=== PATIENT | male | born 1965 | race American Indian/Alaskan Native ===

== ENCOUNTER 2017-02-14 22:24 | Inpatient (IN) | payer OTHER ==
[2017-02-14 23:20] LABS: Basophils % (Auto) 0.8 % (0.0-1.8); Hemoglobin 9.3 gm/dl (11.8-15.2); Mean Corpuscular HGB Conc 28 % (32-34); Platelet Count 202 K/mm3 (140-440); Red Blood Count 4.98 M/mm3 (3.65-5.03); White Blood Count 12.8 K/mm3 (4.5-11.0)
--- NOTE | 2017-02-14 23:20 | XRay Report ---
FINAL REPORT PROCEDURE: XR CHEST 1V AP TECHNIQUE: Chest radiograph anteroposterior view. CPT 53097 HISTORY: sob COMPARISON: No prior studies are available for comparison. FINDINGS: Heart: Cardiac size is upper limit of normal. Mediastinum/Vessels: Normal. Lungs/Pleural space: Normal. Bony thorax: No acute osseous abnormality. Life support devices: None. IMPRESSION: No acute pulmonary process.
[2017-02-14 23:21] LABS: Hematocrit 33.4 % (35.5-45.6); Mean Corpuscular Hemoglobin 19 pg (28-32); Mean Corpuscular Volume 67 fl (84-94); Red Cell Distribution Width 21.6 % (13.2-15.2)
[2017-02-14 23:25] LABS: INR 1.09 (0.87-1.13)
[2017-02-14 23:38] LABS: Creatine Kinase MB 2.9 ng/mL (0.0-4.0)
[2017-02-14 23:40] LABS: Alanine Aminotransferase 13 units/L (7-56); Albumin 3.7 g/dL (3.9-5); Alkaline Phosphatase 81 units/L (35-129); Anion Gap 19 mmol/L; BUN/Creatinine Ratio 12; Blood Urea Nitrogen 32 mg/dL (9-20); Calcium 9.1 mg/dL (8.4-10.2); Carbon Dioxide 22 mmol/L (22-30); Chloride 104.8 mmol/L (98-107); Creatine Kinase 100 units/L (55-170); Glucose 92 mg/dL (75-100); Potassium 3.8 mmol/L (3.6-5.0); Sodium 142 mmol/L (137-145); Total Protein 7.4 g/dL (6.3-8.2)
[2017-02-14] MEDS ORDERED: CARDENE 50 MG in NACL 0.9% 250ML 230 ML IV SCH (23:45)
--- NOTE | 2017-02-15 00:33 | Emergency Department Report ---
ED Shortness of Breath HPI - General Chief Complaint: High BP Stated Complaint: HIGH BP Time Seen by Provider: 02/14/17 22:57 Source: patient, EMS, old records reviewed Mode of arrival: Stretcher Limitations: No Limitations - History of Present Illness Initial Comments: 51-year-old male with a past medical history of, gout, hypertension, chronic kidney disease, and CHF presents to the hospital with complaints of shortness of breath 3 days. Patient complains of dyspnea on exertion. Patient states it feels similar to when he had CHF in the past. Denies orthopnea, PND, cough , recent travel, calf tenderness, or leg asymmetry. Patient had intermittent episodes and nausea vomiting with 5 episodes since Monday and 2 episodes today. Patient denies abdominal pain, chest pain, or fever. Patient went to [facility] and was evaluated. Patient vomited his medication today. On visit to the office his blood pressure was 269/149, pulse 98, respiratory rate 20, temp 99.3, and 95% oxygenation apices unknown if supplemental oxygen was provided) while at [facility] patient received blood work with a negative troponin, CBC showing a WBC count 12.7, hemoglobin 9.5, elevated d-dimer at 0.78 (negative less than 0.5), uric acid elevated to 12.1, and elevated BMP at 3714. No chemistries available for review with no baseline creatinine included Patient treated in the office with 10 mg IV hydralazine, morphine 4 mg, Zofran 4 mg, aspirin 324, and nitroglycerin 0.4 mg. Repeat blood pressure remained elevated despite treatment. Patient was in the hospital in December with diagnosis of hypertensive crisis and grade 2 diastolic dysfunction in the percent as well as acute kidney injury. . Headache started after nitroglycerin is gradually improving. Patient complains of moderate pain to left medial ankle secondary to gout as well as with walking, movement, and palpation. - Related Data Allergies Allergy/AdvReac Type Severity Reaction Status Date / Time No Known Allergies Allergy Verified 02/14/17 22:48 ED Review of Systems ROS: Stated complaint: HIGH BP Other details as noted in HPI Comment: All other systems reviewed and negative Other: Constitutional: No fevers chills Eyes: No eye pain visual changes ENT: No ear pain or throat pain Neck: Denies pain Respiratory: sob Cardiovascular: Denies chest pain, palpitations, syncope GI: as per hpi : Denies dysuria Musculoskeletal: As per HPI Skin: Denies rash, lesions, erythema Neurologic: Denies headache, numbness, weakness Psychiatric: Denies suicidal ideation, hallucinations ED Past Medical Hx - Past Medical History Previous Medical History?: Yes Hx Hypertension: Yes Hx Renal Disease: Yes (chronic renal insufficiency) Hx Arthritis: Yes (gout) Additional medical history: perioheral venous insufficiency. anemia - Surgical History Past Surgical History?: No - Social History Smoking Status: Never Smoker Substance Use Type: None ED Physical Exam - General Limitations: Other - Other Other exam information: General: No limitations, patient is alert in no acute distress Head exam: Atraumatic, normocephalic Eyes exam: Normal appearance, ENT: Moist mucous membrane, normal oropharynx Neck exam: Normal inspection, full range of motion, no meningismus nontender Respiratory exam: Clear to auscultation bilateral, no wheezes, rales, crackles Cardiovascular: Normal rate and rhythm Abdomen: Soft, nondistended, and nontender, with normal bowel sounds, no rebound, or guarding Extremity: Full range of motion normal inspection no deformity, left medial ankle tenderness and warmth without erythema. no calf tenderness Back: Normal Inspection, full range of motion, no tenderness Neurologic: Alert, oriented x3, cranial nerves intact, no motor or sensory deficit Psychiatric: normal affect, normal mood Skin: Warm, dry, intact ED Course Vital Signs 02/14/17 02/14/17 02/14/17 22:42 23:00 23:15 Temperature 98.0 F Pulse Rate 89 Respiratory 18 Rate Blood Pressure 233/134 220/136 222/127 O2 Sat by Pulse 96 98 96 Oximetry 02/14/17 02/14/17 02/15/17 23:30 23:45 00:00 Temperature Pulse Rate 90 85 88 Respiratory 23 28 H 20 Rate Blood Pressure 225/121 227/134 227/134 O2 Sat by Pulse 96 93 95 Oximetry 02/15/17 02/15/17 02/15/17 00:15 00:30 00:45 Temperature Pulse Rate 88 83 89 Respiratory 22 28 H 26 H Rate Blood Pressure 227/129 223/131 223/131 O2 Sat by Pulse 95 93 96 Oximetry 02/15/17 02/15/17 02/15/17 01:29 01:31 01:45 Temperature Pulse Rate 88 97 H 83 Respiratory 21 30 H Rate Blood Pressure 199/105 199/105 189/104 O2 Sat by Pulse 92 97 93 Oximetry - Reevaluation(s) Reevaluation #1: 02/15/17 00:43 wolfgang ted initated - Consultations Consultation #1: 02/15/17 00:[address] Durán with [facility]. Agreeable to having patient admitted here instead of transfer. Consultation #2: 02/15/17 01:28 Dr Nair informed of admission, request call back once vq results ED Medical Decision Making - Lab Data Result diagrams: 02/14/17 23:03 02/14/17 23:03 Lab Results 02/14/17 02/14/17 02/14/17 Range/Units 23:03 23:03 23:03 WBC 12.8 H (4.5-11.0) K/mm3 RBC 4.98 (3.65-5.03) M/mm3 Hgb 9.3 L (11.8-15.2) gm/dl Hct 33.4 L (35.5-45.6) % MCV 67 L (84-94) fl MCH 19 L (28-32) pg MCHC 28 L (32-34) % RDW 21.6 H (13.2-15.2) % Plt Count 202 (140-440) K/mm3 Lymph % (Auto) 17.7 (13.4-35.0) % [place] % (Auto) 6.1 (0.0-7.3) % Eos % (Auto) 1.0 (0.0-4.3) % Baso % (Auto) 0.8 (0.0-1.8) % Lymph # 2.3 (1.2-5.4) K/mm3 [place] # 0.8 (0.0-0.8) K/mm3 Eos # 0.1 (0.0-0.4) K/mm3 Baso # 0.1 (0.0-0.1) K/mm3 Seg Neutrophils % 74.4 H (40.0-70.0) % Seg Neutrophils # 9.5 H (1.8-7.7) K/mm3 PT 14.7 (12.2-14.9) Sec. INR 1.09 (0.87-1.13) APTT 30.0 (24.2-36.6) Sec. D-Dimer 356.84 H (0-234) ng/mlDDU Sodium 142 (137-145) mmol/L Potassium 3.8 (3.6-5.0) mmol/L Chloride 104.8 (98-107) mmol/L Carbon Dioxide 22 (22-30) mmol/L Anion Gap 19 mmol/L BUN 32 H (9-20) mg/dL Creatinine 2.6 H (0.8-1.5) mg/dL Estimated GFR 32 ml/min BUN/Creatinine Ratio 12 % Glucose 92 (75-100) mg/dL Calcium 9.1 (8.4-10.2) mg/dL Total Bilirubin 0.50 (0.1-1.2) mg/dL AST 13 (5-40) units/L ALT 13 (7-56) units/L Alkaline Phosphatase 81 (35-129) units/L Total Creatine Kinase 100 (55-170) units/L CK-MB (CK-2) 2.9 (0.0-4.0) ng/mL CK-MB (CK-2) Rel Index 2.9 (0-4) Troponin T < 0.010 (0.00-0.029) ng/mL NT-Pro-B Natriuret Pep 29164 H (0-450) pg/mL Total Protein 7.4 (6.3-8.2) g/dL Albumin 3.7 L (3.9-5) g/dL Albumin/Globulin Ratio 1.0 % Lipase (13-60) units/L 02/14/ Range/Units 23:03 WBC (4.5-11.0) K/mm3 RBC (3.65-5.03) M/mm3 Hgb (11.8-15.2) gm/dl Hct (35.5-45.6) % MCV (84-94) fl MCH (28-32) pg MCHC (32-34) % RDW (13.2-15.2) % Plt Count (140-440) K/mm3 Lymph % (Auto) (13.4-35.0) % [place] % (Auto) (0.0-7.3) % Eos % (Auto) (0.0-4.3) % Baso % (Auto) (0.0-1.8) % Lymph # (1.2-5.4) K/mm3 [place] # (0.0-0.8) K/mm3 Eos # (0.0-0.4) K/mm3 Baso # (0.0-0.1) K/mm3 Seg Neutrophils % (40.0-70.0) % Seg Neutrophils # (1.8-7.7) K/mm3 PT (12.2-14.9) Sec. INR (0.87-1.13) APTT (24.2-36.6) Sec. D-Dimer (0-234) ng/mlDDU Sodium (137-145) mmol/L Potassium (3.6-5.0) mmol/L Chloride (98-107) mmol/L Carbon Dioxide (22-30) mmol/L Anion Gap mmol/L BUN (9-20) mg/dL Creatinine (0.8-1.5) mg/dL Estimated GFR ml/min BUN/Creatinine Ratio % Glucose (75-100) mg/dL Calcium (8.4-10.2) mg/dL Total Bilirubin (0.1-1.2) mg/dL AST (5-40) units/L ALT (7-56) units/L Alkaline Phosphatase (35-129) units/L Total Creatine Kinase (55-170) units/L CK-MB (CK-2) (0.0-4.0) ng/mL CK-MB (CK-2) Rel Index (0-4) Troponin T (0.00-0.029) ng/mL NT-Pro-B Natriuret Pep (0-450) pg/mL Total Protein (6.3-8.2) g/dL Albumin (3.9-5) g/dL Albumin/Globulin Ratio % Lipase 30 (13-60) units/L - EKG Data -: EKG Interpreted by Me (ems ekg) EKG shows normal: sinus rhythm, axis (32), QRS complexes (94), ST-T waves (lvh with repol, lat t inv) Rate: normal (94) - EKG Data When compared to previous EKG there are: no significant change (compared to ekg at [facility] or 01/02/17 [facility] e[facility]) - Radiology Data Radiology results: report reviewed AP chest: No acute findings VQ neg for pe - Medical Decision Making Plan to admit patient to hospital for hypertensive emergency with associated shortness of breath. Initial troponin negative. Patient has renal insufficiency with unknown baseline. BNP significantly elevated despite unremarkable chest x-ray. Patient started on Cardene drip. Hospitalist informed. Lasix 40 mg IV 1 ordered in the ED given elevated BNP - Differential Diagnosis PE, CHF, SD, unstable angina, hypertensive emergency Critical Care Time: No Critical care attestation.: If time is entered above; I have spent that time in minutes in the direct care of this critically ill patient, excluding procedure time. ED Disposition Clinical Impression: Hypertensive emergency, Dyspnea, Renal insufficiency, Anemia Disposition: OP ADMIT IP TO THIS HOSP Is pt being admited?: Yes Condition: Stable Time of Disposition: 02:01 (Dr Nair/hosp)
--- NOTE | 2017-02-15 01:36 | Nuclear Medicine Report ---
FINAL REPORT PROCEDURE: NM LUNG SCAN PERF/VENT TECHNIQUE: 5.0 mCi Tc-99m MAA was injected IV for pulmonary perfusion imaging in multiple projections. 15.0 mCi xenon 133 was inhaled for pulmonary ventilation imaging in multiple projections. Injection site: RIGHT antecubital fossa. CPT 77677 REGULATORY GUIDELINES: The patient was released based upon guidelines established in [place] State Regulations for Protection Against Radiation, Chapter 1199-04-19-35, Release of Individuals Containing Radioactive Drugs or Implants. HISTORY: elevated ddimer COMPARISON: Chest x-ray 02/14/2017 FINDINGS: Perfusion: No defects . Ventilation: No defects . IMPRESSION: Normal Examination
[2017-02-15] MEDS ORDERED: LASIX IV ONE (02:01)
[2017-02-15] MEDS ORDERED: ZOFRAN IV PRN (08:55)
[2017-02-15] MEDS ORDERED: MILK OF MAGNESIA PO PRN (08:55)
--- NOTE | 2017-02-15 08:59 | History and Physical Report ---
History of Present Illness Date of examination: 02/15/17 Date of admission: 02/15/2017 Chief complaint: shortness of breath History of present illness: Patient is a 51-year-old male with a past medical history of, gout, hypertension , chronic kidney disease, and CHF presents to the Emergency Department with complaints of shortness of breath 3 days. Patient complains of dyspnea on exertion, headache and nausea and vomiting for the past 4 days. Patient went to urgent care and found to have his blood pressure was 269/149; was instructed to go the nearest emergency department. Patient also complains left ankle pain due to gout attack. Patient denies orthopnea, PND, cough, recent travel, calf tenderness, or leg asymmetry. Past History Past Medical History: heart failure, hypertension, other (Gout and chronic kidney disease) Past Surgical History: No surgical history Social history: denies: smoking, alcohol abuse Family history: diabetes, hypertension Medications and Allergies Allergies Allergy/AdvReac Type Severity Reaction Status Date / Time No Known Allergies Allergy Verified 02/14/17 22:48 Home Medications Medication Instructions Recorded Confirmed Last Taken Type Acetaminophen [Tylenol Extra 500 mg PO PRN PRN 02/15/17 02/15/17 02/14/17 History Strength] Allopurinol [Zyloprim] 100 mg PO QDAY 02/15/17 02/15/17 02/14/17 History Atenolol 100 mg PO DAILY 02/15/17 02/15/17 02/14/17 History Calcitriol [Rocaltrol] 0.25 mg PO DAILY 02/15/17 02/15/17 02/14/17 History Furosemide [Lasix TAB] 40 mg PO QDAY 02/15/17 02/15/17 02/14/17 History NIFEdipine [Afeditab Cr] 60 mg PO DAILY 02/15/17 02/15/17 02/14/17 History cloNIDine [Catapres] 0.2 mg PO DAILY 02/15/17 02/15/17 02/14/17 History hydrALAZINE [Apresoline] 50 mg PO DAILY 02/15/17 02/15/17 02/14/17 History traMADol [Ultram] 50 mg PO Q4HR PRN 02/15/17 02/15/17 02/14/17 History Active Meds: Active Medications Nicardipine HCl 50 mg/ Sodium (Chloride) 250 mls @ 25 mls/hr IV TITR CARLOS MANUEL; 5 MG/ HR PRN Reason: Protocol Last Titration: 02/15/17 03:24 Dose: 7.5 mg/hr, 37.5 mls/hr Review of Systems Constitutional: no weight loss, no weight gain, no fever, no chills Ears, nose, mouth and throat: no nasal congestion, no nasal discharge, no sinus pressure Respiratory: shortness of breath, no cough with sputum, no excessive sputum, no hemoptysis Gastrointestinal: no constipation, no change in bowel habits, no hematemesis, no coffee ground emesis Genitourinary Male: no flank pain, no discharge, no incontinence Rectal: no incontinence, no bleeding Musculoskeletal: shooting leg pain (left ankle pain), no shooting arm pain, no arm numbness/tingling, no low back pain Integumentary: no pruritis, no redness, no sores, no wounds Neurological: no parathesias, no numbness, no tingling, no seizures Psychiatric: no sleep disturbances, no insomnia, no hypersomnia, no change in appetite Endocrine: no excessive thirst, no polydipsia, no polyuria, no nocturia Hematologic/Lymphatic: no easy bruising, no easy bleeding Allergic/Immunologic: no urticaria, no allergic rhinitis Exam - Constitutional Vitals: Temp Pulse Resp BP Pulse Ox 98.6 F 81 24 168/89 91 02/15/17 07:38 02/15/17 06:45 02/15/17 06:45 02/15/17 08:30 02/15/17 08:30 General appearance: Present: no acute distress - EENT Eyes: Present: PERRL ENT: hearing intact - Neck Neck: Present: supple - Respiratory Respiratory effort: normal Respiratory: bilateral: CTA - Cardiovascular Rhythm: regular Heart Sounds: Present: S1 & S2 - Abdominal General gastrointestinal: Present: soft, non-tender Male genitourinary: Present: deferred - Rectal Rectal Exam: deferred - Integumentary Integumentary: Present: clear, warm, dry - Musculoskeletal Musculoskeletal: strength equal bilaterally - Psychiatric Psychiatric: appropriate mood/affect - Neurologic Neurologic: moves all extremities - Allied Health Allied health notes reviewed: nursing Results - Labs CBC & Chem 7: 02/14/17 23:03 02/14/17 23:03 Labs: Laboratory Last Values WBC 12.8 K/mm3 (4.5-11.0) H 02/14/17 23:03 RBC 4.98 M/mm3 (3.65-5.03) 02/14/17 23:03 Hgb 9.3 gm/dl (11.8-15.2) L 02/14/17 23:03 Hct 33.4 % (35.5-45.6) L 02/14/17 23:03 MCV 67 fl (84-94) L 02/14/17 23:03 MCH 19 pg (28-32) L 02/14/17 23:03 MCHC 28 % (32-34) L 02/14/17 23:03 RDW 21.6 % (13.2-15.2) H 02/14/17 23:03 Plt Count 202 K/mm3 (140-440) 02/14/17 23:03 Lymph % (Auto) 17.7 % (13.4-35.0) 02/14/17 23:03 [place] % (Auto) 6.1 % (0.0-7.3) 02/14/17 23:03 Eos % (Auto) 1.0 % (0.0-4.3) 02/14/17 23:03 Baso % (Auto) 0.8 % (0.0-1.8) 02/14/17 23:03 Lymph # 2.3 K/mm3 (1.2-5.4) 02/14/17 23:03 [place] # 0.8 K/mm3 (0.0-0.8) 02/14/17 23:03 Eos # 0.1 K/mm3 (0.0-0.4) 02/14/17 23:03 Baso # 0.1 K/mm3 (0.0-0.1) 02/14/17 23:03 Seg Neutrophils % 74.4 % (40.0-70.0) H 02/14/17 23:03 Seg Neutrophils # 9.5 K/mm3 (1.8-7.7) H 02/14/17 23:03 PT 14.7 Sec. (12.2-14.9) 02/14/17 23:03 INR 1.09 (0.87-1.13) 02/14/17 23:03 APTT 30.0 Sec. (24.2-36.6) 02/14/17 23:03 D-Dimer 356.84 ng/mlDDU (0-234) H 02/14/17 23:03 Sodium 142 mmol/L (137-145) 02/14/17 23:03 Potassium 3.8 mmol/L (3.6-5.0) 02/14/17 23:03 Chloride 104.8 mmol/L (98-107) 02/14/17 23:03 Carbon Dioxide 22 mmol/L (22-30) 02/14/17 23:03 Anion Gap 19 mmol/L 02/14/17 23:03 BUN 32 mg/dL (9-20) H 02/14/17 23:03 Creatinine 2.6 mg/dL (0.8-1.5) H 02/14/17 23:03 Estimated GFR 32 ml/min 02/14/17 23:03 BUN/Creatinine Ratio 12 % 02/14/17 23:03 Glucose 92 mg/dL (75-100) 02/14/17 23:03 Calcium 9.1 mg/dL (8.4-10.2) 02/14/17 23:03 Total Bilirubin 0.50 mg/dL (0.1-1.2) 02/14/17 23:03 AST 13 units/L (5-40) 02/14/17 23:03 ALT 13 units/L (7-56) 02/14/17 23:03 Alkaline Phosphatase 81 units/L (35-129) 02/14/17 23:03 Total Creatine Kinase 100 units/L (55-170) 02/14/17 23:03 CK-MB (CK-2) 2.9 ng/mL (0.0-4.0) 02/14/17 23:03 CK-MB (CK-2) Rel Index 2.9 (0-4) 02/14/17 23:03 Troponin T < 0.010 ng/mL (0.00-0.029) 02/14/17 23:03 NT-Pro-B Natriuret Pep 96687 pg/mL (0-450) H 02/14/17 23:03 Total Protein 7.4 g/dL (6.3-8.2) 02/14/17 23:03 Albumin 3.7 g/dL (3.9-5) L 02/14/17 23:03 Albumin/Globulin Ratio 1.0 % 02/14/17 23:03 Lipase 30 units/L (13-60) 02/14/17 23:03 - Imaging and Cardiology Chest x-ray: image reviewed (unremarkable) Assessment and Plan Assessment and plan: Patient is a 51-year-old male with a past medical history of, gout and hypertension who presents to the Emergency Department with complaints of shortness of breath 3 days. Hypertension emergency Wean Cardene drip and transitioned to oral antihypertensive medication Optimized antihypertensive medication IV hydralazine for SBP>160 Echocardiogram for LV function Closely monitor blood pressure Acute renal failure Most likely due to hypertensive nephropathy Renal ultrasound We will wait on fluid until echo findings are back Repeat BMP in the morning Acute gout Start IV steroid, no NSAID due to renal failure Resume allopurinol Elevated d-dimer VQ scan no evidence of pulmonary embolism DVT prophylaxis Heparin Advance Directives: Yes VTE prophylaxis?: Chemical Contraindication Mechanical VTE Prophylaxis: Treatment Not Indicated Plan of care discussed with patient/family: Yes
[2017-02-15] MEDS ORDERED: LOVENOX SUB-Q SCH (10:00)
[2017-02-15] MEDS ORDERED: LASIX PO SCH (10:00)
[2017-02-15] MEDS ORDERED: DULCOLAX PR PRN (10:00)
[2017-02-15] MEDS ORDERED: TYLENOL PO PRN (10:00)
[2017-02-15] MEDS: APRESOLINE PO SCH ×2 (10:32→17:17)
[2017-02-15] MEDS: CATAPRES PO SCH (10:33)
[2017-02-15] MEDS: MORPHINE IV PRN ×2 (10:40→20:23)
[2017-02-15] MEDS: TENORMIN PO SCH (10:44)
[2017-02-15] MEDS: ROCALTROL PO SCH (13:00)
[2017-02-15] MEDS: ZYLOPRIM PO SCH (13:00)
[2017-02-15] MEDS: HEPARIN SUB-Q SCH (21:57)
--- NOTE | 2017-02-16 01:48 | Ultrasound Report ---
FINAL REPORT PROCEDURE: US RENAL BILAT TECHNIQUE: Real-time sonography in multiple planes of the kidneys, ureters and urinary bladder was performed with image documentation. CPT 06586 HISTORY: Acute renal failure COMPARISON: No prior studies are available for comparison. FINDINGS: RIGHT kidney: There is increased cortical echotexture. No focal renal mass, calculus, or hydronephrosis. Length: 9.9 cm. LEFT kidney: There is increased cortical echotexture. No focal renal mass, calculus, or hydronephrosis. Length: 10.5cm. Bladder: Normal. IMPRESSION: There are no kidney stones, masses, cysts or hydronephrosis. The kidneys are slightly atrophic in demonstrate increased renal cortical echotexture consistent with chronic medical renal disease..
[2017-02-16] MEDS: APRESOLINE PO SCH ×3 (04:41→18:17)
[2017-02-16 07:13] LABS: Mean Corpuscular HGB Conc 29 % (32-34); Platelet Count 212 K/mm3 (140-440); Red Blood Count 5.09 M/mm3 (3.65-5.03); White Blood Count 11.1 K/mm3 (4.5-11.0)
[2017-02-16 07:22] LABS: Hematocrit 34.9 % (35.5-45.6); Mean Corpuscular Hemoglobin 20 pg (28-32); Mean Corpuscular Volume 69 fl (84-94); Red Cell Distribution Width 21.9 % (13.2-15.2)
[2017-02-16 07:25] LABS: Calcium 9.3 mg/dL (8.4-10.2); Chloride 101.9 mmol/L (98-107); Potassium 4.5 mmol/L (3.6-5.0)
[2017-02-16 08:18] LABS: Anisocytosis 1+; Basophils % (Manual) 0 % (0.0-1.8); Blastocytes % (Manual) 0 %; Eosinophils % (Manual) 0 % (0.0-4.3); Hypochromasia 1+
[2017-02-16 08:19] LABS: Diff Status Complete; Microcytosis 2+; Polychromasia Few
[2017-02-16] MEDS: TENORMIN PO SCH (10:22)
[2017-02-16] MEDS: ZYLOPRIM PO SCH (10:22)
[2017-02-16] MEDS: CATAPRES PO SCH (10:24)
[2017-02-16] MEDS: ROCALTROL PO SCH (10:24)
[2017-02-16] MEDS: HEPARIN SUB-Q SCH ×2 (10:26→22:17)
[2017-02-16] MEDS ORDERED: CATAPRES PO SCH (16:00)
[2017-02-16] MEDS: MORPHINE IV PRN (18:26)
--- NOTE | 2017-02-16 20:16 | Progress Note ---
Assessment and Plan Assessment and plan: 51 yo obese AAM with HTN, CKD, Gout went to urgent care for worsening shortness of breath, found to have the blood pressure 269/149 and was sent emergently to the ER Hypertension emergency In ER started on Cardene drip Now transitioned to po antihypertensives Currently on beta getachew and clonidine; noted that was taking clonidine once a day which he played a role in his extremely elevated BP; discussed with him that this is a 3 times a day medication and can cause rebound hypertension which missed doses and he is not willing to continue Start hydralazine along with beta getachew Avoid KARSTEN inhibitor and diuretics due to renal insufficiency Monitor BP and adjust regimen as needed Obtain echocardiogram to assess LV function Acute renal failure superimposed on chronic kidney disease Likely due to hypertensive nephropathy Renal ultrasound with no obstruction Monitor BUN/creatinine and electrolytes Normocytic anemia Likely anemia of chronic kidney disease Monitor H&H Acute gout attack Started on IV corticosteroids; no NSAID due to renal failure Continue allopurinol Elevated d-dimer VQ scan with no evidence of pulmonary embolism Obesity Counseled regarding importance of losing weight and lifestyle changes DVT prophylaxis Heparin subcutaneous History Interval history: Feeling better, shortness of breath improved Hospitalist Physical - Constitutional Vitals: Temp Pulse Resp BP Pulse Ox 97.4 F L 98 H 22 162/88 98 02/16/17 16:04 02/16/17 18:17 02/16/17 16:04 02/16/17 18:17 02/16/17 16:04 General appearance: Present: no acute distress, obese - EENT Eyes: Present: PERRL, EOM intact. Absent: scleral icterus, conjunctival injection - Neck Neck: Present: supple, normal ROM. Absent: masses or JVD - Respiratory Respiratory effort: normal Respiratory: bilateral: CTA, negative: rhonchi, wheezing - Cardiovascular Rhythm: regular Heart Sounds: Present: S1 & S2. Absent: systolic murmur - Extremities Extremities: no ischemia - Abdominal General gastrointestinal: soft, non-tender, non-distended, normal bowel sounds - Psychiatric Psychiatric: cooperative - Neurologic Neurologic: CNII-XII intact, no focal deficits Results - Labs CBC & Chem 7: 02/16/17 05:43 02/16/17 05:43 Labs: Laboratory Last Values WBC 11.1 K/mm3 (4.5-11.0) H 02/16/17 05:43 RBC 5.09 M/mm3 (3.65-5.03) H 02/16/17 05:43 Hgb 10.0 gm/dl (11.8-15.2) L 02/16/17 05:43 Hct 34.9 % (35.5-45.6) L 02/16/17 05:43 MCV 69 fl (84-94) L 02/16/17 05:43 MCH 20 pg (28-32) L 02/16/17 05:43 MCHC 29 % (32-34) L 02/16/17 05:43 RDW 21.9 % (13.2-15.2) H 02/16/17 05:43 Plt Count 212 K/mm3 (140-440) 02/16/17 05:43 Lymph % (Auto) 17.7 % (13.4-35.0) 02/14/17 23:03 [place] % (Auto) 6.1 % (0.0-7.3) 02/14/17 23:03 Eos % (Auto) 1.0 % (0.0-4.3) 02/14/17 23:03 Baso % (Auto) 0.8 % (0.0-1.8) 02/14/17 23:03 Lymph # 2.3 K/mm3 (1.2-5.4) 02/14/17 23:03 [place] # 0.8 K/mm3 (0.0-0.8) 02/14/17 23:03 Eos # 0.1 K/mm3 (0.0-0.4) 02/14/17 23:03 Baso # 0.1 K/mm3 (0.0-0.1) 02/14/17 23:03 Add Manual Diff Complete 02/16/17 05:43 Total Counted 100 02/16/17 05:43 Seg Neutrophils % Patient Scheduling Manager 02/16/17 05:43 Seg Neuts % (Manual) 86.0 % (40.0-70.0) H 02/16/17 05:43 Band Neutrophils % 1.0 % 02/16/17 05:43 Lymphocytes % (Manual) 10.0 % (13.4-35.0) L 02/16/17 05:43 Reactive Lymphs % (Man) 0 % 02/16/17 05:43 Monocytes % (Manual) 3.0 % (0.0-7.3) 02/16/17 05:43 Eosinophils % (Manual) 0 % (0.0-4.3) 02/16/17 05:43 Basophils % (Manual) 0 % (0.0-1.8) 02/16/17 05:43 Metamyelocytes % 0 % 02/16/17 05:43 Myelocytes % 0 % 02/16/17 05:43 Promyelocytes % 0 % 02/16/17 05:43 Blast Cells % 0 % 02/16/17 05:43 Nucleated RBC % Not Reportable 02/16/17 05:43 Seg Neutrophils # 9.5 K/mm3 (1.8-7.7) H 02/14/17 23:03 Seg Neutrophils # Man 9.5 K/mm3 (1.8-7.7) H 02/16/17 05:43 Band Neutrophils # 0.1 K/mm3 02/16/17 05:43 Lymphocytes # (Manual) 1.1 K/mm3 (1.2-5.4) L 02/16/17 05:43 Abs React Lymphs (Man) 0.0 K/mm3 02/16/17 05:43 Monocytes # (Manual) 0.3 K/mm3 (0.0-0.8) 02/16/17 05:43 Eosinophils # (Manual) 0.0 K/mm3 (0.0-0.4) 02/16/17 05:43 Basophils # (Manual) 0.0 K/mm3 (0.0-0.1) 02/16/17 05:43 Metamyelocytes # 0.0 K/mm3 02/16/17 05:43 Myelocytes # 0.0 K/mm3 02/16/17 05:43 Promyelocytes # 0.0 K/mm3 02/16/17 05:43 Blast Cells # 0.0 K/mm3 02/16/17 05:43 WBC Morphology Not Reportable 02/16/17 05:43 Hypersegmented Neuts Not Reportable 02/16/17 05:43 Hyposegmented Neuts Not Reportable 02/16/17 05:43 Hypogranular Neuts Not Reportable 02/16/17 05:43 Smudge Cells Not Reportable 02/16/17 05:43 Toxic Granulation Not Reportable 02/16/17 05:43 Toxic Vacuolation Not Reportable 02/16/17 05:43 Dohle Bodies Not Reportable 02/16/17 05:43 Pelger-Huet Anomaly Not Reportable 02/16/17 05:43 Catrachito Rods Not Reportable 02/16/17 05:43 Platelet Estimate Not Reportable 02/16/17 05:43 Clumped Platelets Not Reportable 02/16/17 05:43 Plt Clumps, EDTA Not Reportable 02/16/17 05:43 Large Platelets Not Reportable 02/16/17 05:43 Giant Platelets Not Reportable 02/16/17 05:43 Platelet Satelliting Not Reportable 02/16/17 05:43 Plt Morphology Comment Not Reportable 02/16/17 05:43 RBC Morphology Not Reportable 02/16/17 05:43 Dimorphic RBCs Not Reportable 02/16/17 05:43 Polychromasia Few 02/16/17 05:43 Hypochromasia 1+ 02/16/17 05:43 Poikilocytosis Not Reportable 02/16/17 05:43 Anisocytosis 1+ 02/16/17 05:43 Microcytosis 2+ 02/16/17 05:43 Macrocytosis Not Reportable 02/16/17 05:43 Spherocytes Not Reportable 02/16/17 05:43 Pappenheimer Bodies Not Reportable 02/16/17 05:43 Sickle Cells Not Reportable 02/16/17 05:43 Target Cells Not Reportable 02/16/17 05:43 Tear Drop Cells Not Reportable 02/16/17 05:43 Ovalocytes Not Reportable 02/16/17 05:43 Helmet Cells Not Reportable 02/16/17 05:43 Pad[place] Bodies Not Reportable 02/16/17 05:43 [place] Rings Not Reportable 02/16/17 05:43 Guilherme Cells Not Reportable 02/16/17 05:43 Bite Cells Not Reportable 02/16/17 05:43 Crenated Cell Not Reportable 02/16/17 05:43 Elliptocytes Not Reportable 02/16/17 05:43 Acanthocytes (Spur) Not Reportable 02/16/17 05:43 Rouleaux Not Reportable 02/16/17 05:43 Hemoglobin C Crystals Not Reportable 02/16/17 05:43 Schistocytes Not Reportable 02/16/17 05:43 Malaria parasites Not Reportable 02/16/17 05:43 Giovanny Bodies Not Reportable 02/16/17 05:43 Hem Pathologist Commnt No 02/16/17 05:43 PT 14.7 Sec. (12.2-14.9) 02/14/17 23:03 INR 1.09 (0.87-1.13) 02/14/17 23:03 APTT 30.0 Sec. (24.2-36.6) 02/14/17 23:03 D-Dimer 356.84 ng/mlDDU (0-234) H 02/14/17 23:03 Sodium 142 mmol/L (137-145) 02/16/17 05:43 Potassium 4.5 mmol/L (3.6-5.0) 02/16/17 05:43 Chloride 101.9 mmol/L (98-107) 02/16/17 05:43 Carbon Dioxide 23 mmol/L (22-30) 02/16/17 05:43 Anion Gap 22 mmol/L 02/16/17 05:43 BUN 40 mg/dL (9-20) H 02/16/17 05:43 Creatinine 3.2 mg/dL (0.8-1.5) H 02/16/17 05:43 Estimated GFR 25 ml/min 02/16/17 05:43 BUN/Creatinine Ratio 13 % 02/16/17 05:43 Glucose 159 mg/dL (75-100) H 02/16/17 05:43 POC Glucose 139 (70-105) H 02/16/17 17:03 Calcium 9.3 mg/dL (8.4-10.2) 02/16/17 05:43 Total Bilirubin 0.50 mg/dL (0.1-1.2) 02/14/17 23:03 AST 13 units/L (5-40) 02/14/17 23:03 ALT 13 units/L (7-56) 02/14/17 23:03 Alkaline Phosphatase 81 units/L (35-129) 02/14/17 23:03 Total Creatine Kinase 100 units/L (55-170) 02/14/17 23:03 CK-MB (CK-2) 2.9 ng/mL (0.0-4.0) 02/14/17 23:03 CK-MB (CK-2) Rel Index 2.9 (0-4) 02/14/17 23:03 Troponin T < 0.010 ng/mL (0.00-0.029) 02/14/17 23:03 NT-Pro-B Natriuret Pep 74702 pg/mL (0-450) H 02/14/17 23:03 Total Protein 7.4 g/dL (6.3-8.2) 02/14/17 23:03 Albumin 3.7 g/dL (3.9-5) L 02/14/17 23:03 Albumin/Globulin Ratio 1.0 % 02/14/17 23:03 Lipase 30 units/L (13-60) 02/14/17 23:03
[2017-02-17] MEDS: APRESOLINE PO SCH ×3 (01:10→17:29)
[2017-02-17] MEDS: APRESOLINE IV PRN ×2 (06:44→22:33)
[2017-02-17 06:58] LABS: Chloride 101.5 mmol/L (98-107); Potassium 4.7 mmol/L (3.6-5.0)
[2017-02-17] MEDS: ROCALTROL PO SCH ×2 (08:33→09:48)
[2017-02-17] MEDS: ZYLOPRIM PO SCH ×2 (08:34→09:49)
[2017-02-17] MEDS: TENORMIN PO SCH ×2 (08:34→09:49)
[2017-02-17] MEDS: HEPARIN SUB-Q SCH ×3 (08:34→22:33)
[2017-02-17] MEDS ORDERED: NIFEDIPINE 60 MG PO SCH (14:00)
[2017-02-17] MEDS: PROCARDIA XL PO SCH (14:53)
--- NOTE | 2017-02-17 18:53 | Progress Note ---
Assessment and Plan Assessment and plan: 51 yo obese AAM with HTN, CKD, Gout went to urgent care for worsening shortness of breath, found to have the blood pressure 269/149 and was sent emergently to the ER Hypertension emergency In ER started on Cardene drip Now transitioned to po antihypertensives On beta getachew and clonidine; noted that was taking clonidine once a day which could have played a role in his extremely elevated BP; discussed with him that this is a 3 times a day medication and can cause rebound hypertension which missed doses and he was not willing to continue Started hydralazine along with beta getachew; nifedipine added today Avoid KARSTEN inhibitor and diuretics due to renal insufficiency Monitor BP and make further adjustments as needed Echocardiogram obtained and showed moderate LVH, EF 40-45%, moderate pulmonary hypertension Acute renal failure superimposed on chronic kidney disease Likely due to hypertensive nephropathy Renal ultrasound with no obstruction Monitor BUN/creatinine and electrolytes Normocytic anemia Likely anemia of chronic kidney disease Monitor H&H Acute gout attack Started on IV corticosteroids; no NSAID due to renal failure Continue allopurinol Elevated d-dimer VQ scan with no evidence of pulmonary embolism Obesity Counseled regarding importance of losing weight and lifestyle changes DVT prophylaxis Heparin subcutaneous Dispo Discharge with [facility] follow-up History Interval history: Feeling better, shortness of breath improved Hospitalist Physical - Constitutional Vitals: Temp Pulse Resp BP Pulse Ox 97.5 F L 70 20 146/73 98 02/17/17 15:08 02/17/17 15:08 02/17/17 15:08 02/17/17 15:08 02/17/17 15:08 General appearance: Present: no acute distress, obese - EENT Eyes: Present: PERRL, EOM intact - Neck Neck: Present: supple, normal ROM. Absent: masses or JVD - Respiratory Respiratory effort: normal Respiratory: bilateral: CTA, negative: rhonchi, wheezing - Cardiovascular Rhythm: regular Heart Sounds: Present: S1 & S2. Absent: systolic murmur - Extremities Extremities: no ischemia - Abdominal General gastrointestinal: soft, non-tender, non-distended, normal bowel sounds - Psychiatric Psychiatric: cooperative - Neurologic Neurologic: CNII-XII intact, no focal deficits Results - Labs CBC & Chem 7: 02/16/17 05:43 02/17/17 05:42 Labs: Laboratory Last Values WBC 11.1 K/mm3 (4.5-11.0) H 02/16/17 05:43 RBC 5.09 M/mm3 (3.65-5.03) H 02/16/17 05:43 Hgb 10.0 gm/dl (11.8-15.2) L 02/16/17 05:43 Hct 34.9 % (35.5-45.6) L 02/16/17 05:43 MCV 69 fl (84-94) L 02/16/17 05:43 MCH 20 pg (28-32) L 02/16/17 05:43 MCHC 29 % (32-34) L 02/16/17 05:43 RDW 21.9 % (13.2-15.2) H 02/16/17 05:43 Plt Count 212 K/mm3 (140-440) 02/16/17 05:43 Lymph % (Auto) 17.7 % (13.4-35.0) 02/14/17 23:03 [place] % (Auto) 6.1 % (0.0-7.3) 02/14/17 23:03 Eos % (Auto) 1.0 % (0.0-4.3) 02/14/17 23:03 Baso % (Auto) 0.8 % (0.0-1.8) 02/14/17 23:03 Lymph # 2.3 K/mm3 (1.2-5.4) 02/14/17 23:03 [place] # 0.8 K/mm3 (0.0-0.8) 02/14/17 23:03 Eos # 0.1 K/mm3 (0.0-0.4) 02/14/17 23:03 Baso # 0.1 K/mm3 (0.0-0.1) 02/14/17 23:03 Add Manual Diff Complete 02/16/17 05:43 Total Counted 100 02/16/17 05:43 Seg Neutrophils % Landing Signal Officer 02/16/17 05:43 Seg Neuts % (Manual) 86.0 % (40.0-70.0) H 02/16/17 05:43 Band Neutrophils % 1.0 % 02/16/17 05:43 Lymphocytes % (Manual) 10.0 % (13.4-35.0) L 02/16/17 05:43 Reactive Lymphs % (Man) 0 % 02/16/17 05:43 Monocytes % (Manual) 3.0 % (0.0-7.3) 02/16/17 05:43 Eosinophils % (Manual) 0 % (0.0-4.3) 02/16/17 05:43 Basophils % (Manual) 0 % (0.0-1.8) 02/16/17 05:43 Metamyelocytes % 0 % 02/16/17 05:43 Myelocytes % 0 % 02/16/17 05:43 Promyelocytes % 0 % 02/16/17 05:43 Blast Cells % 0 % 02/16/17 05:43 Nucleated RBC % Not Reportable 02/16/17 05:43 Seg Neutrophils # 9.5 K/mm3 (1.8-7.7) H 02/14/17 23:03 Seg Neutrophils # Man 9.5 K/mm3 (1.8-7.7) H 02/16/17 05:43 Band Neutrophils # 0.1 K/mm3 02/16/17 05:43 Lymphocytes # (Manual) 1.1 K/mm3 (1.2-5.4) L 02/16/17 05:43 Abs React Lymphs (Man) 0.0 K/mm3 02/16/17 05:43 Monocytes # (Manual) 0.3 K/mm3 (0.0-0.8) 02/16/17 05:43 Eosinophils # (Manual) 0.0 K/mm3 (0.0-0.4) 02/16/17 05:43 Basophils # (Manual) 0.0 K/mm3 (0.0-0.1) 02/16/17 05:43 Metamyelocytes # 0.0 K/mm3 02/16/17 05:43 Myelocytes # 0.0 K/mm3 02/16/17 05:43 Promyelocytes # 0.0 K/mm3 02/16/17 05:43 Blast Cells # 0.0 K/mm3 02/16/17 05:43 WBC Morphology Not Reportable 02/16/17 05:43 Hypersegmented Neuts Not Reportable 02/16/17 05:43 Hyposegmented Neuts Not Reportable 02/16/17 05:43 Hypogranular Neuts Not Reportable 02/16/17 05:43 Smudge Cells Not Reportable 02/16/17 05:43 Toxic Granulation Not Reportable 02/16/17 05:43 Toxic Vacuolation Not Reportable 02/16/17 05:43 Dohle Bodies Not Reportable 02/16/17 05:43 Pelger-Huet Anomaly Not Reportable 02/16/17 05:43 Catrachito Rods Not Reportable 02/16/17 05:43 Platelet Estimate Not Reportable 02/16/17 05:43 Clumped Platelets Not Reportable 02/16/17 05:43 Plt Clumps, EDTA Not Reportable 02/16/17 05:43 Large Platelets Not Reportable 02/16/17 05:43 Giant Platelets Not Reportable 02/16/17 05:43 Platelet Satelliting Not Reportable 02/16/17 05:43 Plt Morphology Comment Not Reportable 02/16/17 05:43 RBC Morphology Not Reportable 02/16/17 05:43 Dimorphic RBCs Not Reportable 02/16/17 05:43 Polychromasia Few 02/16/17 05:43 Hypochromasia 1+ 02/16/17 05:43 Poikilocytosis Not Reportable 02/16/17 05:43 Anisocytosis 1+ 02/16/17 05:43 Microcytosis 2+ 02/16/17 05:43 Macrocytosis Not Reportable 02/16/17 05:43 Spherocytes Not Reportable 02/16/17 05:43 Pappenheimer Bodies Not Reportable 02/16/17 05:43 Sickle Cells Not Reportable 02/16/17 05:43 Target Cells Not Reportable 02/16/17 05:43 Tear Drop Cells Not Reportable 02/16/17 05:43 Ovalocytes Not Reportable 02/16/17 05:43 Helmet Cells Not Reportable 02/16/17 05:43 Padron-[place] Bodies Not Reportable 02/16/17 05:43 [place] Rings Not Reportable 02/16/17 05:43 Guilherme Cells Not Reportable 02/16/17 05:43 Bite Cells Not Reportable 02/16/17 05:43 Crenated Cell Not Reportable 02/16/17 05:43 Elliptocytes Not Reportable 02/16/17 05:43 Acanthocytes (Spur) Not Reportable 02/16/17 05:43 Rouleaux Not Reportable 02/16/17 05:43 Hemoglobin C Crystals Not Reportable 02/16/17 05:43 Schistocytes Not Reportable 02/16/17 05:43 Malaria parasites Not Reportable 02/16/17 05:43 Giovanny Bodies Not Reportable 02/16/17 05:43 Hem Pathologist Commnt No 02/16/17 05:43 PT 14.7 Sec. (12.2-14.9) 02/14/17 23:03 INR 1.09 (0.87-1.13) 02/14/17 23:03 APTT 30.0 Sec. (24.2-36.6) 02/14/17 23:03 D-Dimer 356.84 ng/mlDDU (0-234) H 02/14/17 23:03 Sodium 139 mmol/L (137-145) 02/17/17 05:42 Potassium 4.7 mmol/L (3.6-5.0) 02/17/17 05:42 Chloride 101.5 mmol/L (98-107) 02/17/17 05:42 Carbon Dioxide 23 mmol/L (22-30) 02/17/17 05:42 Anion Gap 19 mmol/L 02/17/17 05:42 BUN 46 mg/dL (9-20) H 02/17/17 05:42 Creatinine 3.3 mg/dL (0.8-1.5) H 02/17/17 05:42 Estimated GFR 24 ml/min 02/17/17 05:42 BUN/Creatinine Ratio 14 % 02/17/17 05:42 Glucose 112 mg/dL (75-100) H 02/17/17 05:42 POC Glucose 117 (70-105) H 02/17/17 16:16 Calcium 9.0 mg/dL (8.4-10.2) 02/17/17 05:42 Total Bilirubin 0.50 mg/dL (0.1-1.2) 02/14/17 23:03 AST 13 units/L (5-40) 02/14/17 23:03 ALT 13 units/L (7-56) 02/14/17 23:03 Alkaline Phosphatase 81 units/L (35-129) 02/14/17 23:03 Total Creatine Kinase 100 units/L (55-170) 02/14/17 23:03 CK-MB (CK-2) 2.9 ng/mL (0.0-4.0) 02/14/17 23:03 CK-MB (CK-2) Rel Index 2.9 (0-4) 02/14/17 23:03 Troponin T < 0.010 ng/mL (0.00-0.029) 02/14/17 23:03 NT-Pro-B Natriuret Pep 17119 pg/mL (0-450) H 02/14/17 23:03 Total Protein 7.4 g/dL (6.3-8.2) 02/14/17 23:03 Albumin 3.7 g/dL (3.9-5) L 02/14/17 23:03 Albumin/Globulin Ratio 1.0 % 02/14/17 23:03 Lipase 30 units/L (13-60) 02/14/17 23:03
[2017-02-17] MEDS: MORPHINE IV PRN (22:42)
[2017-02-18] MEDS: APRESOLINE PO SCH ×2 (00:31→09:11)
[2017-02-18] MEDS ORDERED: ULTRAM PO PRN (07:56)
[2017-02-18] MEDS ORDERED: MORPHINE IV PRN (07:56)
[2017-02-18] MEDS ORDERED: NACL 0.9% 1000 ML 1,000 ML IV SCH (08:00)
[2017-02-18] MEDS: ROCALTROL PO SCH (09:11)
[2017-02-18] MEDS: PROCARDIA XL PO SCH (09:11)
[2017-02-18] MEDS: TENORMIN PO SCH (09:12)
[2017-02-18] MEDS: HEPARIN SUB-Q SCH (09:12)
[2017-02-18] MEDS: ZYLOPRIM PO SCH (09:12)
[2017-02-18] MEDS: APRESOLINE IV PRN (11:27)
[2017-02-18 12:54] VITALS: BP 151/77
--- NOTE | 2017-02-18 12:55 | Discharge Summary ---
Providers - Providers Date of Admission: 02/15/17 08:55 Date of discharge: 02/18/17 Attending physician: FATOUMATA CHOWDARY Primary care physician: PSYCHOLOGIST RESEARCH ASSISTANT Hospitalization Reason for admission: worsening shortness of breath Condition: Stable Pertinent studies: Chest x-ray Ultrasound VQ scan negative for PE Echocardiogram Hospital course: 51 yo obese AAM with HTN, CKD, Gout went to urgent care for worsening shortness of breath, found to have the blood pressure 269/149 and was sent emergently to the ER Discharge diagnosis and management; --Hypertension emergency, Received Cardene drip, later transitioned to po antihypertensives Echocardiogram EF 40-45%, moderate pulmonary hypertension --Acute renal failure superimposed on chronic kidney disease, due to hypertensive nephropathy, Renal ultrasound normal --Normocytic anemia, Likely anemia of chronic kidney disease --Acute gout attack; Started on IV corticosteroids; allopurinol --Elevated d-dimer; no PE --Morbid Obesity; BMI of 41; counseling done Patient's symptoms significantly improved, and day of discharge patient was comfortable in no new complaints Vital signs stable, physical examination prior to discharge did not show any new changes Hemodynamically and clinically stable for discharge Follow-up the primary care physician presented to Disposition: DC-01 TO HOME OR SELFCARE Time spent for discharge: 32 min Core Measure Documentation - Palliative Care Palliative Care/ Comfort Measures: Not Applicable - Core Measures Any of the following diagnoses?: none Exam - Constitutional Vitals: Temp Pulse Resp BP Pulse Ox 97.8 F 66 18 184/100 94 02/18/17 08:25 02/18/17 08:25 02/18/17 08:25 02/18/17 11:22 02/18/17 08:25 General appearance: Present: no acute distress, well-nourished - EENT Eyes: Present: PERRL, EOM intact - Neck Neck: Present: supple, normal ROM - Respiratory Respiratory effort: normal Respiratory: negative: rales, rhonchi, wheezing - Cardiovascular Rhythm: regular Heart Sounds: Present: S1 & S2 - Extremities Extremities: no ischemia, No edema - Abdominal General gastrointestinal: Present: soft, non-tender, non-distended, normal bowel sounds - Integumentary Integumentary: Present: clear, warm - Musculoskeletal Musculoskeletal: strength equal bilaterally - Psychiatric Psychiatric: appropriate mood/affect, cooperative - Neurologic Neurologic: CNII-XII intact, moves all extremities Plan Activity: no restrictions Additional Instructions: f/u Private nephrology in 2-3 days Follow up with: PRIMARY CARE, [Primary Care Provider] - 7 Days Forms: Work/School Release Form Prescriptions: Allopurinol [Zyloprim] 100 mg PO QDAY #30 tablet Atenolol 100 mg PO DAILY #30 tablet cloNIDine [Catapres] 0.1 mg PO Q12HR #60 tablet hydrALAZINE [Apresoline TAB] 50 mg PO Q8H #90 tablet NIFEdipine [Afeditab Cr] 60 mg PO DAILY #30 tablet.er traMADol [Ultram 50 MG tab] 50 mg PO Q8H PRN #15 tablet PRN Reason: Pain
[2017-02-18] MEDS ORDERED: APRESOLINE PO ONE (13:00)
[2017-02-18] MEDS ORDERED: CATAPRES PO SCH (22:00)
== END 2017-02-18 14:23 | disposition home or self-care (01) | DRG 305 ==
LOC: ED 22:24 → 3A 02-15 08:55
PROVIDERS: ADMIT Internal Medicine; ATTEND Internal Medicine
DX: I16.1 Hypertensive emergency (principal); N17.9 Acute kidney failure, unspecified; Z68.41 Body mass index [BMI] 40.0-44.9, adult; N18.9 Chronic kidney disease, unspecified; I50.9 Heart failure, unspecified; M10.9 Gout, unspecified; I13.0 Hypertensive heart and chronic kidney disease with heart failure and stage 1 through stage 4 chronic kidney disease, or unspecified chronic kidney disease; E66.9 Obesity, unspecified; I27.20 Pulmonary hypertension, unspecified; D64.9 Anemia, unspecified; Z83.3 Family history of diabetes mellitus; Z82.49 Family history of ischemic heart disease and other diseases of the circulatory system
CPT/HCPCS: 36415; 71010; 76770; 78582; 80048; 80053; 82550; 82553; 82962; 83690; 83880; 84484; 85007; 85025; 85379; 85610; 85730; 93005; 93010; 93306; 96365; 96366; 96372; 96375; 99285; A9540; A9558; J0360; J1644; J1650; J1940; J2270; J2920; J7030; J7050